=== PATIENT | male | born 1990 | race African-American/Black ===

== ENCOUNTER 2016-06-21 08:40 | Emergency (ER) | payer SELFPAY ==
[~2016-06-21] VITALS: Ht 175.3 cm; Wt 77.3 kg
[2016-06-21 08:48] VITALS: BP 128/68; PULSE 68; TEMP 98.7
== END 2016-06-21 09:40 | disposition home or self-care (01) ==
LOC: COL.ER 08:40
DX: R04.0 Epistaxis (principal); F17.210 Nicotine dependence, cigarettes, uncomplicated